=== PATIENT | female | born 1985 | race Caucasian/White ===

== ENCOUNTER 2023-01-29 17:47 | Emergency (ER) | payer OTHER, SELFPAY ==
[2023-01-29 18:15] VITALS: BP 138/80; PULSE 80; RESP 14; TEMP 36.8; O2SAT 99; BMI 25.8
[2023-01-29 21:52] VITALS: BP 117/79; PULSE 74; O2SAT 98
--- NOTE | 2023-01-29 22:00 | ED_ITS ---
HPI - Neuro Symptoms/Deficit General Chief Complaint: Neuro Symptoms/Deficit Stated Complaint: Blurred vision, speech is off, worsening Time Seen by Provider: 01/29/23 21:54 Source: patient Mode of arrival: Ambulatory Limitations: no limitations History of Present Illness HPI Narrative: Patient is a 38-year-old female who was told to come to the emergency department after attempting to make a initial visit with a primary doctor. She was trying to make an appointment with the primary doctor for evaluation of symptoms that have been going on for the past several months. She states that she is having occasional episodes of blurry vision and saying inappropriate words. She is also having periods of lightheadedness. No chest pain. These periods are intermittent. No numbness and tingling in her upper and lower extremities. She feels that the symptoms have been getting worse so she attempted to make contact with the primary doctor and was told that she needed comes in the emergency department. On Anticoagulants: No Related Data Allergies Allergy/AdvReac Type Severity Reaction Status Date / Time codeine Allergy Verified 01/29/23 18:15 Review of Systems Review of Systems ROS Unobtainable: All systems reviewed & are unremarkable except as noted in HPI and below Hematologic/Lymphatic On Anticoagulants: No Patient History Social History Smoking Status: Unknown if ever smoked Smoking Status: Unknown if ever smoked alcohol intake frequency: holidays/special occasions only Substance Use Type: does not use Exam Initial Vital Signs Initial Vital Signs: Vital Signs Temperature 98.2 F 01/29/23 18:15 Pulse Rate 80 01/29/23 18:15 Respiratory Rate 14 01/29/23 18:15 Blood Pressure 138/80 01/29/23 18:15 Pulse Oximetry 99 01/29/23 18:15 Oxygen Delivery Method Room Air 01/29/23 18:15 Const General: cooperative, comfortable and No ill appearing HENMT Head: normal to inspection and normocephalic Resp Effort & Inspection: normal respiratory effort Auscultation: clear to auscultation bilaterally Cardio Rate: regular rate Rhythm: regular rhythm Skin General: no rashes or lesions noted Neuro General: patient alert, patient awake, patient oriented x3 and moves all extre mities Speech: speech normal Extrem General: normal to inspection and capillary refill normal Psych Appearance: grossly normal Scores GCS [place] coma scale eye opening: Spontaneous Gabriel coma scale verbal response: Orientated Gabriel coma scale motor response: Obey commands [place] coma scale total score: 15 Course Orders Ordered: ED Orders 01/29/23 22:02 CT head/brain wo con Stat 01/29/23 22:40 Complete Blood Count AUTO DIFF Stat Comprehensive Metabolic Panel Stat Ethanol (ETOH) Stat Lipase Stat Magnesium Stat Phosphorous Stat Thyroid Stimulating Hormone Stat Vital Signs Vital signs: Vital Signs - 8 hr 01/29/23 21:52 01/30/23 00:06 Pulse Rate 74 68 Respiratory Rate 19 Blood Pressure 117/79 112/59 L Pulse Oximetry 98 98 Oxygen Delivery Method Room Air Room Air MDM - Neuro Symptoms/Deficit Lab Data Attestation: I reviewed the patient's lab results. 01/29/23 22:40 01/29/23 22:40 Labs: Lab Results 01/29/23 01/29/23 01/29/23 Range/Units 22:40 22:40 22:40 WBC 7.1 (4.5-11.0) X10^3/uL RBC 4.32 (4.0-5.2) X10^6/uL Hgb 13.4 (12.0-16.0) g/dL Hct 39.7 (36-46) % MCV 91.9 (80-100) fL MCH 31.1 (26-34) PG MCHC 33.8 (30-36) % RDW 13.2 (11.6-14.8) % Plt Count 177 (150-400) X10^3/uL Neut % (Auto) 42.8 L (50-75) % Lymph % (Auto) 47.1 H (25-40) % [place] % (Auto) 8.4 (3-14) % Eos % (Auto) 1.4 L (2-4) % Baso % (Auto) 0.3 (0-2) % Neut # (Auto) 3000 (7677-1079) /uL Lymph # (Auto) 3300 (6878-9334) /uL [place] # (Auto) 600 (0-900) /uL Eos # (Auto) 100 (0-450) /uL Baso # (Auto) 0 (0-100) /uL Sodium 137 (137-145) mmol/L Potassium 3.4 (3.4-5.1) mmol/L Chloride 102 (98-107) mmol/L Carbon Dioxide 28 (22-32) mmol/L BUN 11 (7-17) mg/dL Creatinine 0.76 (0.52-1.04) mg/dL Estimated GFR > 60 (>60) mL/min BUN/Creatinine Ratio 14.5 (6-22) Glucose 96 (70-100) mg/dL Calcium 8.6 (8.4-10.2) mg/dL Phosphorus 3.5 (2.5-4.5) mg/dL Magnesium 2.0 (1.6-2.3) mg/dL Total Bilirubin 0.5 (0.2-1.3) mg/dL AST 20 (14-36) IU/L ALT 13 (<35) IU/L Alkaline Phosphatase 55 (38-126) U/L Total Protein 7.2 (6.3-8.2) g/dL Albumin 4.2 (3.5-5.0) g/dL Globulin 3.0 (1.7-4.1) g/dL Albumin/Globulin Ratio 1.4 (1.0-2.8) Lipase 96 (23-300) U/L TSH (0.47-4.68) uIU/mL Ethyl Alcohol < 10 ( - 10) mg/dL 01/29/23 Range/Units 22:40 WBC (4.5-11.0) X10^3/uL RBC (4.0-5.2) X10^6/uL Hgb (12.0-16.0) g/dL Hct (36-46) % MCV (80-100) fL MCH (26-34) PG MCHC (30-36) % RDW (11.6-14.8) % Plt Count (150-400) X10^3/uL Neut % (Auto) (50-75) % Lymph % (Auto) (25-40) % [place] % (Auto) (3-14) % Eos % (Auto) (2-4) % Baso % (Auto) (0-2) % Neut # (Auto) (1261-5681) /uL Lymph # (Auto) (6745-3571) /uL [place] # (Auto) (0-900) /uL Eos # (Auto) (0-450) /uL Baso # (Auto) (0-100) /uL Sodium (137-145) mmol/L Potassium (3.4-5.1) mmol/L Chloride (98-107) mmol/L Carbon Dioxide (22-32) mmol/L BUN (7-17) mg/dL Creatinine (0.52-1.04) mg/dL Estimated GFR (>60) mL/min BUN/Creatinine Ratio (6-22) Glucose (70-100) mg/dL Calcium (8.4-10.2) mg/dL Phosphorus (2.5-4.5) mg/dL Magnesium (1.6-2.3) mg/dL Total Bilirubin (0.2-1.3) mg/dL AST (14-36) IU/L ALT (<35) IU/L Alkaline Phosphatase (38-126) U/L Total Protein (6.3-8.2) g/dL Albumin (3.5-5.0) g/dL Globulin (1.7-4.1) g/dL Albumin/Globulin Ratio (1.0-2.8) Lipase (23-300) U/L TSH 2.98 (0.47-4.68) uIU/mL Ethyl Alcohol ( - 10) mg/dL Imaging Data CT scan - head: Radiologist's Impression: PROCEDURE:? CT HEAD/BRAIN WO CON ? INDICATIONS:? Speech issues ? TECHNIQUE:? Noncontrast 4.5 mm thick angled axial sections acquired from the foramen magnum to the vertex, with coronal and sagittal reformats.? For radiation dose reduction, the following was used:? automated exposure control, adjustment of mA and/or kV according to patient size.? ? COMPARISON:? None. ? FINDINGS:? Image quality:? Excellent.? ? CSF spaces:? Basal cisterns are patent.? No extra-axial fluid collections.? Ventricles are normal in size and shape.? ? Brain:? No intracranial hemorrhage, mass, or mass effect.? Bhatia-white matter interface appears preserved.? ? Skull and face:? Calvarium and visualized facial bones are intact, without suspicious lesions.? ? Sinuses:? Visualized sinuses and mastoids are clear.? ? IMPRESSION:? ? 1. No acute intracranial abnormality. MDM Narrative Medical decision making narrative: Patient has had neurologic symptoms that have been going on for the past several months. Here in the emergency department her labs are unremarkable. Her exam i s unremarkable although she does admit she is not having symptoms currently. Her head CT is unremarkable. Patient understands lack of definitive diagnosis however does not appear to be an emergent, infectious, surgical issue. Low suspicion for CVA/TIA. No easily reversible cause found here in the ER. Will discharge patient home and have her continue to work on making follow-up with primary provider. She was given return precautions. She expressed understanding and agreement. Discharge Plan Departure Patient Disposition: Home Clinical Impression: Speech abnormality Activity Restrictions/Additional Instructions: I do recommend that you continue to work on establishing care with a primary doctor. Continue any medications as directed. Return to the emergency department for any new or worsening symptoms. Stand Alone Forms: Patient Portal/API
--- NOTE | 2023-01-29 22:02 | DI.CT.S_ITS ---
PROCEDURE: CT HEAD/BRAIN WO CON INDICATIONS: Speech issues TECHNIQUE: Noncontrast 4.5 mm thick angled axial sections acquired from the foramen magnum to the vertex, with coronal and sagittal reformats. For radiation dose reduction, the following was used: automated exposure control, adjustment of mA and/or kV according to patient size. COMPARISON: None. FINDINGS: Image quality: Excellent. CSF spaces: Basal cisterns are patent. No extra-axial fluid collections. Ventricles are normal in size and shape. Brain: No intracranial hemorrhage, mass, or mass effect. Bhatia-white matter interface appears preserved. Skull and face: Calvarium and visualized facial bones are intact, without suspicious lesions. Sinuses: Visualized sinuses and mastoids are clear. IMPRESSION: 1. No acute intracranial abnormality. Dictated by: Alejandro Erickson M.D. on 01/29/2023 at 22:27 Approved by: Alejandro Erickson M.D. on 01/29/2023 at 22:28
[2023-01-29 23:00] LABS: Add Manual Diff / Slide Review NO; Basophils Absolute Auto 0 /uL (0-100); Basophils Percent Auto 0.3 % (0-2); Eosinophils Absolute Auto 100 /uL (0-450); Eosinophils Percent Auto 1.4 % (2-4); Hematocrit 39.7 % (36-46); Hemoglobin 13.4 g/dL (12.0-16.0); Lymphocytes Absolute Auto 3300 /uL (1100-4500); Lymphocytes Percent Auto 47.1 % (25-40); Mean Corpuscular HGB Conc 33.8 % (30-36); Mean Corpuscular Hemoglobin 31.1 PG (26-34); Mean Corpuscular Volume 91.9 fL (80-100); Monocytes Absolute Auto 600 /uL (0-900); Monocytes Percent Auto 8.4 % (3-14); Neutrophils Absolute Auto 3000 /uL (1500-7000); Neutrophils Percent Auto 42.8 % (50-75); Platelet Count 177 X10^3/uL (150-400); Red Blood Cell Count 4.32 X10^6/uL (4.0-5.2); Red Cell Distribution Width 13.2 % (11.6-14.8); White Blood Cell Count 7.1 X10^3/uL (4.5-11.0)
[2023-01-29 23:12] LABS: Ethanol (ETOH) < 10 mg/dL; Lipase 96 U/L (23-300); Phosphorous 3.5 mg/dL (2.5-4.5)
[2023-01-29 23:13] LABS: Alanine Aminotransferase 13 IU/L (<35); Albumin 4.2 g/dL (3.5-5.0); Albumin Globulin Ratio 1.4 (1.0-2.8); Alkaline Phosphatase 55 U/L (38-126); Aspartate Aminotransferase 20 IU/L (14-36); BUN Creatinine Ratio 14.5 (6-22); Bilirubin Total 0.5 mg/dL (0.2-1.3); Blood Urea Nitrogen 11 mg/dL (7-17); Calcium 8.6 mg/dL (8.4-10.2); Carbon Dioxide 28 mmol/L (22-32); Chloride 102 mmol/L (98-107); Estimated Glomerular Filt Rate > 60 mL/min (>60); Glucose 96 mg/dL (70-100); HEMOLYSIS < 15 (0-50); Potassium 3.4 mmol/L (3.4-5.1); Sodium 137 mmol/L (137-145); Total Protein 7.2 g/dL (6.3-8.2)
[2023-01-29 23:43] LABS: Thyroid Stimulating Hormone 2.98 uIU/mL (0.47-4.68)
[2023-01-30 00:06] VITALS: BP 112/59; PULSE 68; RESP 19; O2SAT 98
== END 2023-01-30 00:08 | disposition home or self-care (01) ==
PROVIDERS: Emergency Provider Emergency Medicine
DX: R47.9 Unspecified speech disturbances (principal); H53.8 Other visual disturbances
CPT/HCPCS: 36415; 70450; 80053; 80320; 83690; 83735; 84100; 84443; 85025; 99284

== ENCOUNTER → 2023-12-21 09:00 | Outpatient (CLI) | payer OTHER, SELFPAY ==
[2023-12-21 09:31] LABS: Add Manual Diff / Slide Review NO; Basophils Absolute Auto 100 /uL (0-100); Basophils Percent Auto 1.2 % (0-2); Eosinophils Absolute Auto 100 /uL (0-450); Eosinophils Percent Auto 1.8 % (2-4); Hematocrit 40.2 % (36-46); Hemoglobin 13.8 g/dL (12.0-16.0); Lymphocytes Absolute Auto 2200 /uL (1100-4500); Mean Corpuscular HGB Conc 34.3 % (30-36); Mean Corpuscular Hemoglobin 31.8 PG (26-34); Mean Corpuscular Volume 92.6 fL (80-100); Monocytes Absolute Auto 500 /uL (0-900); Monocytes Percent Auto 8.6 % (3-14); Neutrophils Absolute Auto 3000 /uL (1500-7000); Neutrophils Percent Auto 51.4 % (50-75); Platelet Count 173 X10^3/uL (150-400); Red Blood Cell Count 4.34 X10^6/uL (4.0-5.2); Red Cell Distribution Width 12.9 % (11.6-14.8); White Blood Cell Count 5.9 X10^3/uL (4.5-11.0)
[2023-12-21 10:02] LABS: Alanine Aminotransferase 12 IU/L (<35); Albumin 4.3 g/dL (3.5-5.0); Albumin Globulin Ratio 1.4 (1.0-2.8); Alkaline Phosphatase 47 U/L (38-126); Aspartate Aminotransferase 19 IU/L (14-36); BUN Creatinine Ratio 16.7 (6-22); Bilirubin Total 0.7 mg/dL (0.2-1.3); Blood Urea Nitrogen 12 mg/dL (7-17); Calcium 9.2 mg/dL (8.4-10.2); Carbon Dioxide 23 mmol/L (22-32); Chloride 107 mmol/L (98-107); Cholesterol 159 mg/dL (140-199); Estimated Glomerular Filt Rate > 60 mL/min (>60); Globulin 3.1 g/dL (1.7-4.1); Glucose 98 mg/dL (70-100); HDL Cholesterol 62 mg/dL (40-60); HEMOLYSIS < 15 (0-50); LDL Cholesterol Calculated 82 mg/dL (<100); Potassium 4.6 mmol/L (3.4-5.1); Sodium 138 mmol/L (137-145); Total Protein 7.4 g/dL (6.3-8.2); Triglycerides 75 mg/dL (35-150)
[2023-12-21 10:15] LABS: Follicle Stimulating Hormone 4.08 mIU/mL; Luteinizing Hormone 4.81 mIU/mL
[2023-12-21 10:17] LABS: Prolactin 25.2 ng/mL (3.0-18.6)
[2023-12-21 10:31] LABS: Estradiol, Total 101.2 pg/mL
[2023-12-21 10:38] LABS: HEMOLYSIS < 15 (0-50); Iron 130 ug/dL (37-170); Vitamin D 25 Hydroxy (D3) 22.9 ng/mL (30.0-100.0)
[2023-12-21 10:49] LABS: Percent Iron Saturation 46 % (15-50); Total Iron Binding Capacity 282 ug/dL (265-497); Transferrin 230 mg/dL (206-381); Vitamin B12 256 pg/mL (239-931)
[2023-12-21 11:10] LABS: TSH w/ Reflex to FT4 1.03 uIU/mL (0.47-4.68)
== END ==
LOC: LAB 09:01
PROVIDERS: PCP Family Medicine; Referring Provider Family Medicine; Visit Provider Family Medicine
DX: E04.9 Nontoxic goiter, unspecified (principal); L65.9 Nonscarring hair loss, unspecified; R41.3 Other amnesia; G43.109 Migraine with aura, not intractable, without status migrainosus; Z83.49 Family history of other endocrine, nutritional and metabolic diseases; K90.41 Non-celiac gluten sensitivity; Z13.6 Encounter for screening for cardiovascular disorders
CPT/HCPCS: 36415; 80053; 80061; 82306; 82607; 82670; 83001; 83002; 83540; 83550; 84146; 84443; 85025

== ENCOUNTER → 2024-01-10 09:17 | Outpatient (CLI) | payer OTHER, SELFPAY ==
--- NOTE | 2024-01-10 09:17 | DI.US.S_ITS ---
PROCEDURE: US THYROID INDICATIONS: Thyroid goiter TECHNIQUE: Real-time scanning was performed of the thyroid gland, with image documentation. COMPARISON: None. FINDINGS: Right: Thyroid lobe measures 5.8 x 1.8 x 1.6 cm, and is homogeneous in echotexture. Left: Thyroid lobe measures 5.2 x 1.5 x 1.0 cm, and is homogenous in echotexture. Isthmus: 0.2 cm thick. Nodule number: 1 Location: Right mid Size: 2.6 x 1.2 x 1.2 cm. Composition: Mixed cystic/solid Echogenicity: Anechoic Shape: wider than tall. Margins: Irregular Echogenic foci: None Total points: 3 ACR TI-RADS category: 3 IMPRESSION: 1. 2.6 cm T3 lesion. FNA recommended if not previously performed. ACR TI-RADS definitions and recommendations: TI-RADS 1 (benign): 0 points. FNA not needed. TI-RADS 2 (not suspicious): 2 points. FNA not needed. TI-RADS 3 (mildly suspicious): 3 points. * FNA if 2.5 cm or larger, follow up if 1.5 cm or larger (at 1, 3, and 5 years). TI-RADS 4 (moderately suspicious): 4-6 points. * FNA if 1.5 cm or larger, follow up if 1 cm or larger (at 1, 2, 3, and 5 years). TI-RADS 5 (highly suspicious): 7 points or more. * FNA if 1 cm or larger, follow up if 0.5 cm or larger (every year for 5 years). Dictated by: Chica Negro M.D. on 01/11/2024 at 11:57 Approved by: Chica Negro M.D. on 01/11/2024 at 11:59
== END ==
LOC: US 09:17
PROVIDERS: PCP Family Medicine; Referring Provider Family Medicine; Visit Provider Family Medicine
DX: E04.1 Nontoxic single thyroid nodule (principal)
CPT/HCPCS: 76536

== ENCOUNTER → 2024-01-14 17:07 | Outpatient (CLI) | payer OTHER, SELFPAY ==
--- NOTE | 2024-01-14 17:09 | DI.MRI.S_ITS ---
PROCEDURE: MR BRAIN (PITUITARY) [facility] INDICATIONS: elevated proctin TECHNIQUE: Noncontrast sagittal and axial FLAIR, axial gradient echo, axial diffusion and ADC through the brain. Thin-slice sagittal and coronal T1 spin echo, coronal T2 fast spin echo through the pituitary. After the administration contrast, optional dynamic coronal T1 spin echo, thin-slice coronal and sagittal T1 spin echo images through the pituitary fossa; axial and coronal and sagittal T1 spin echo with fat saturation through the brain. COMPARISON: CT, CT HEAD/BRAIN WO CON, 01/29/2023, 22:04. FINDINGS: Image quality: Excellent. Pituitary Gland: There is mild leftward deviation of the infundibulum. The pituitary gland is not enlarged. There is an overall appearance of mild heterogeneous enhancement. CSF Spaces: Ventricles are normal in size and shape. Basal cisterns are patent. No extra-axial fluid collections. Brain: No intracranial bleeds or mass effects. No abnormal intracranial enhancement. Bhatia-white matter interface is intact. Diffusion weighted images demonstrate no acute ischemic insults. Brainstem is normal. Normal intravascular flow voids are present. Skull and face: Calvarial marrow is normal in signal. Orbits appear normal. Sinuses: Sinuses and mastoids are clear. IMPRESSION: Mild overall appearance of heterogeneous enhancement within the pituitary gland without enlargement or distinctly defined mass. Dictated by: Rosa Falcon M.D. on 01/15/2024 at 11:42 Approved by: Rosa Falcon M.D. on 01/15/2024 at 12:11
== END ==
PROVIDERS: PCP Family Medicine; Referring Provider Family Medicine; Visit Provider Family Medicine
DX: R79.89 Other specified abnormal findings of blood chemistry (principal)
CPT/HCPCS: 70553; A9579

== ENCOUNTER → 2024-02-29 11:22 | Outpatient (CLI) | payer OTHER, SELFPAY ==
--- NOTE | 2024-02-29 11:26 | DI.RAD.S_ITS ---
PROCEDURE: XR SACRUM COCCYX MIN 2V INDICATIONS: coccygeal pain TECHNIQUE: 3 views of the sacrum and coccyx acquired. COMPARISON: None. FINDINGS: Bones: No fractures or dislocations. No suspicious bony lesions. Soft tissues: Visualized bowel gas pattern is normal. No suspicious soft tissue densities. IMPRESSION: No fracture or dislocation. Dictated by: Theresa Castle M.D. on 02/29/2024 at 16:13 Approved by: Theresa Castle M.D. on 02/29/2024 at 16:14
== END ==
PROVIDERS: PCP Family Medicine; Referring Provider Family Medicine; Visit Provider Family Medicine
DX: M53.3 Sacrococcygeal disorders, not elsewhere classified (principal); G89.29 Other chronic pain
CPT/HCPCS: 72220

== ENCOUNTER → 2024-03-30 16:57 | Outpatient (CLI) | payer OTHER, SELFPAY ==
[2024-03-30 18:29] LABS: Prolactin 13.1 ng/mL (3.0-18.6)
== END ==
PROVIDERS: PCP Family Medicine; Referring Provider Family Medicine; Visit Provider Family Medicine
DX: R79.89 Other specified abnormal findings of blood chemistry (principal)
CPT/HCPCS: 36415; 84146

== ENCOUNTER → 2024-06-12 14:36 | Outpatient (CLI) | payer OTHER, SELFPAY ==
--- NOTE | 2024-06-12 14:37 | DI.MG.S_ITS ---
BILATERAL DIGITAL SCREENING MAMMOGRAM 3D/2D WITH CAD: 06/12/2024 CLINICAL: Routine screening. Baseline exam. No prior exams were available for comparison. Both breasts are heterogeneously dense, which may obscure small masses (category c / 51-75% glandular tissue). Current study was also evaluated with a Computer Aided Detection (CAD) system. There is an oval focal asymmetry with an obscured margin in the right breast at 12 o'clock posterior depth. There is an oval equal density focal asymmetry with an obscured margin in the left breast central to the nipple middle depth. There also is an oval asymmetry with an obscured margin in the left breast at 2 o'clock middle depth. No other significant masses or calcifications are seen in either breast. IMPRESSION: INCOMPLETE: NEEDS ADDITIONAL IMAGING EVALUATION The oval focal asymmetry in the right breast at 12 o'clock posterior depth resembles a cyst, a solid mass, or a fibroadenoma and is indeterminate. Additional views with possible ultrasound are recommended. The oval equal density focal asymmetry in the left breast central to the nipple middle depth resembles a cyst, a lymph node, or a fibroadenoma and is indeterminate. Additional views with possible ultrasound are recommended. The oval asymmetry in the left breast at 2 o'clock middle depth resembles a cyst, a lymph node, or a fibroadenoma and is indeterminate. Additional views with possible ultrasound are recommended. Based on the Tyrer Cuzick model (a risk assessment model) the patient's lifetime risk is 13.9% and her 10 year risk is 1.7%. According to the ACR, ACS, and NCCN guidelines, an annual breast MRI exam along with mammogram is recommended if the patient's lifetime risk is 20% or greater. This exam was interpreted at Station ID: [id number]. NOTE: For mammograms, a report in lay terms will be sent to the patient. Approximately 15% of breast malignancies will not be visualized mammographically. In the management of a palpable breast mass, a negative mammogram must not discourage biopsy of a clinically suspicious lesion. Electronically Signed By: Castillo Baker M.D. aty/:06/12/2024 18:12:11 letter sent: Followup Recommended ACR BI-RADS Category 0: Incomplete 3340F
== END ==
PROVIDERS: PCP Family Medicine; Referring Provider Family Medicine; Visit Provider Family Medicine
DX: Z12.31 Encounter for screening mammogram for malignant neoplasm of breast (principal); R92.333 Mammographic heterogeneous density, bilateral breasts
CPT/HCPCS: 77063; 77067

== ENCOUNTER → 2024-06-26 12:18 | Outpatient (CLI) | payer OTHER, SELFPAY ==
--- NOTE | 2024-06-26 12:19 | DI.US.S_ITS ---
PROCEDURE: US PELVIC COMPLETE INDICATIONS: LEFT PELVIC PAIN TECHNIQUE: Real-time scanning was performed of the pelvic organs, with image documentation. Additional endovaginal scanning was necessary due to incomplete visualization of the adnexal and endometrial structures by transabdominal scanning. COMPARISON: None. FINDINGS: Uterus: Uterus is anteverted and normal in size at 8.7 x 5.1 x 7.4 cm. The myometrium is heterogeneous. The endometrium measures 7.5 mm combined thickness. Right anterior intramural fibroid measuring 1.7 x 1 x 1.2 cm. Cervix and vagina are within normal limits. Ovaries: The right ovary measures 1.7 x 1.4 x 2.5 cm, with a calculated ovarian volume of 3.1 cc. The left ovary measures 1.7 x 1.6 x 3.3 cm, with a calculated ovarian volume of 4.6 cc. The ovaries have a normal sonographic appearance. Less than 12 follicles can be seen in each ovary. No adnexal masses are seen. Normal color flow of the bilateral ovaries. Other: No pathologic free abdominal or pelvic fluid. IMPRESSION: 1. Intramural fibroid measuring 1.7 x 1 x 1.2 cm. 2. Normal sonographic appearance of the bilateral ovaries. We strive to produce accurate, complete, and clear reports of imaging services. To assist us in improving patient care, this report was composed using standard report templates and voice recognition software. Therefore, it may contain abnormal punctuation, insertions and/or omissions. Occasional wrong-word or sound-alike substitutions may occur. Though we review the report and make efforts to correct it, we do recommend that the report be read carefully in proper context to recognize any text inaccuracies. Dictated by: Theresa Castle M.D. on 06/26/2024 at 19:29 Approved by: Theresa Castle M.D. on 06/26/2024 at 19:31
== END ==
PROVIDERS: PCP Family Medicine; Referring Provider Family Medicine; Visit Provider Family Medicine
DX: S76.019A Strain of muscle, fascia and tendon of unspecified hip, initial encounter (principal); D25.1 Intramural leiomyoma of uterus
CPT/HCPCS: 76830; 76856; 93975

== ENCOUNTER → 2024-06-29 13:26 | Outpatient (CLI) | payer OTHER, SELFPAY ==
--- NOTE | 2024-06-29 13:27 | DI.US.S_ITS ---
LIMITED ULTRASOUND OF RIGHT BREAST: 06/29/2024 CLINICAL: Patient returns today to evaluate a focal asymmetry in the right breast. Comparison is made to exams dated: 06/29/2024 mammogram and 06/12/2024 mammogram - [facility]. Color flow ultrasound of the right breast 1-2 o'clock region was performed. Bhatia scale images of the real-time examination were reviewed. There is a benign 1.1 cm x 0.8 cm x 0.8 cm oval cyst with a smooth internal wall in the right breast at 1 o'clock posterior depth 4 cm from the nipple. This oval cyst is anechoic with posterior acoustic enhancement. This correlates with mammography findings. Color flow imaging demonstrates that there is no vascularity present. IMPRESSION: BENIGN There is no sonographic evidence of malignancy. The 1.1 cm x 0.8 cm x 0.8 cm oval cyst in the right breast is consistent with a simple cyst and is benign. Return to annual mammogram screening schedule is recommended. This exam was interpreted at Station ID: [id number]. Electronically Signed By: Jean montes/ingrid:06/29/2024 21:47:11 Ultrasound BI-RADS: 2 Benign
--- NOTE | 2024-06-29 13:27 | DI.US.S_ITS ---
LIMITED ULTRASOUND OF LEFT BREAST: 06/29/2024 CLINICAL: Patient returns today to evaluate a focal asymmetry in the left breast. Comparison is made to exams dated: 06/29/2024 mammogram and 06/12/2024 mammogram - [facility]. Real-time and continuous wave Doppler ultrasound of the left breast 1-2 o'clock region were performed. There is a benign 1 cm x 1.1 cm x 0.4 cm oval cyst with a smooth internal wall in the left breast at 1 o'clock posterior depth. This oval cyst is anechoic with posterior acoustic enhancement. This correlates with mammography findings. Color flow imaging demonstrates that there is no vascularity present. There also is a benign 1.3 cm x 1.4 cm cluster of oval cysts with a septated internal wall in the left breast at 2 o'clock posterior depth 4 cm from the nipple. This cluster of oval cysts is anechoic with posterior acoustic enhancement. This correlates with mammography findings. Color flow imaging demonstrates that there is no vascularity present. IMPRESSION: BENIGN There is no sonographic evidence of malignancy. The 1 cm x 1.1 cm x 0.4 cm oval cyst in the left breast at 1 o'clock posterior depth is consistent with a simple cyst and is benign. The 1.3 cm x 1.4 cm cluster of oval cysts in the left breast at 2 o'clock posterior depth is benign. Return to annual mammogram screening schedule is recommended. This exam was interpreted at Station ID: [id number]. Electronically Signed By: Jean montes/ingrid:06/29/2024 21:45:40 letter sent: Normal Exam Ultrasound BI-RADS: 2 Benign
--- NOTE | 2024-06-29 13:27 | DI.MG.S_ITS ---
BILATERAL DIGITAL DIAGNOSTIC MAMMOGRAM 3D/2D WITH ADDITIONAL VIEWS: 06/29/2024 CLINICAL: Additional evaluation requested from prior study. Comparison is made to exam dated: 06/12/2024 mammogram - [facility]. Both breasts are heterogeneously dense, which may obscure small masses (category c / 51-75% glandular tissue). There is an oval focal asymmetry with an obscured and circumscribed margin in the right breast at 1 o'clock posterior depth. This is seen in additional views. There is an oval equal density focal asymmetry with an obscured and circumscribed margin in the left breast at 1 o'clock posterior depth. There also is an oval asymmetry with an obscured margin in the left breast at 2 o'clock middle depth. This is seen in additional views. No other significant masses or calcifications are seen in either breast. IMPRESSION: INCOMPLETE: NEEDS ADDITIONAL IMAGING EVALUATION The oval focal asymmetry in the right breast at 1 o'clock posterior depth is indeterminate. An ultrasound is recommended. The oval equal density focal asymmetry in the left breast at 1 o'clock posterior depth is indeterminate. An ultrasound is recommended. The oval asymmetry in the left breast at 2 o'clock middle depth is indeterminate. An ultrasound is recommended. Based on the Tyrer Cuzick model (a risk assessment model) the patient's lifetime risk is 14.2% and her 10 year risk is 1.8%. According to the ACR, ACS, and NCCN guidelines, an annual breast MRI exam along with mammogram is recommended if the patient's lifetime risk is 20% or greater. This exam was interpreted at Station ID: [id number]. NOTE: For mammograms, a report in lay terms will be sent to the patient. Approximately 15% of breast malignancies will not be visualized mammographically. In the management of a palpable breast mass, a negative mammogram must not discourage biopsy of a clinically suspicious lesion. Electronically Signed By: Jean montes/ingrid:06/29/2024 21:43:30 ACR BI-RADS Category 0: Incomplete 3340F
== END ==
LOC: MAMMO 13:27
PROVIDERS: PCP Family Medicine; Referring Provider Family Medicine; Visit Provider Family Medicine
DX: R92.8 Other abnormal and inconclusive findings on diagnostic imaging of breast (principal); R92.333 Mammographic heterogeneous density, bilateral breasts; N60.02 Solitary cyst of left breast; N60.01 Solitary cyst of right breast
CPT/HCPCS: 76642; 77066; G0279

== ENCOUNTER → 2024-09-22 14:30 | Outpatient (CLI) | payer OTHER, SELFPAY ==
[2024-09-22 15:35] LABS: HEMOLYSIS < 15 (0-50); Iron 94 ug/dL (37-170)
[2024-09-22 15:46] LABS: Percent Iron Saturation 34 % (15-50); Total Iron Binding Capacity 278 ug/dL (265-497); Transferrin 222 mg/dL (206-381)
[2024-09-22 15:52] LABS: Prolactin 7.5 ng/mL (3.0-18.6)
[2024-09-22 16:06] LABS: TSH w/ Reflex to FT4 0.78 uIU/mL (0.47-4.68)
[2024-09-22 16:09] LABS: Ferritin 33 ng/mL (6-137)
[2024-09-22 16:26] LABS: Vitamin B12 935 pg/mL (239-931)
[2024-09-22 16:54] LABS: Vitamin D 25 Hydroxy (D3) 70.8 ng/mL (30.0-100.0)
[2024-09-22 16:55] LABS: Follicle Stimulating Hormone 3.27 mIU/mL; Luteinizing Hormone 4.29 mIU/mL; Progesterone, Total 0.98 ng/mL
[2024-09-27 20:15] LABS: Estrogen 352 pg/mL (.)
[2024-10-05 23:36] LABS: Anti Mullerian Hormone 0.676 ng/mL (.)
== END ==
PROVIDERS: PCP Family Medicine; Referring Provider Family Medicine; Visit Provider Family Medicine
DX: R10.2 Pelvic and perineal pain (principal); E23.7 Disorder of pituitary gland, unspecified; R79.89 Other specified abnormal findings of blood chemistry; R41.3 Other amnesia; L65.9 Nonscarring hair loss, unspecified; E04.9 Nontoxic goiter, unspecified; E61.1 Iron deficiency; E53.8 Deficiency of other specified B group vitamins; E55.9 Vitamin D deficiency, unspecified; R68.82 Decreased libido
CPT/HCPCS: 36415; 82306; 82397; 82607; 82672; 82728; 83001; 83002; 83540; 83550; 84144; 84146; 84443

== ENCOUNTER → 2025-08-10 | Outpatient (CLI) | payer OTHER, SELFPAY ==
--- NOTE | 2025-08-10 14:54 | DI.MG.S_ITS ---
MM screening mammo BI: 08/10/2025. BI-RADS: 2 CLINICAL: 40-year old female for bilateral screening mammogram. Tyrer-Cuzick lifetime risk of 12.5%. No personal or first-degree family history of breast cancer. PRIOR EXAMS 06/29/2024, 06/12/2024. MAMMOGRAPHY TECHNIQUE: 2D and 3D (tomosynthesis) digital mammographic views obtained, with additional images as needed for full coverage. Current study was also evaluated with a Computer Aided Detection (CAD) system. DENSITY C. The breasts are heterogeneously dense, which may obscure small masses. MAMMOGRAPHY FINDINGS Bilateral: There are multiple bilateral benign appearing round and oval circumscribed masses. There are no suspicious masses, calcifications, or other findings in the breast. IMPRESSION: * No evidence of malignancy with benign findings. RECOMMENDATIONS Bilateral * Annual screening mammography. OVERALL ASSESSMENT CATEGORY BI-RADS-2: Benign. The [employer] recommends annual screening mammography beginning at age 40 for women with average risk of breast cancer. ELECTRONICALLY SIGNED: Kimberly Victoria M.D. on 08/23/2025 at 09:54:22 AM PT Interpreting Station ID: [id number]
== END ==
PROVIDERS: PCP Family Medicine; Referring Provider Family Medicine; Visit Provider Family Medicine
DX: Z12.31 Encounter for screening mammogram for malignant neoplasm of breast (principal); R92.333 Mammographic heterogeneous density, bilateral breasts
CPT/HCPCS: 77063; 77067

== ENCOUNTER → 2025-09-16 13:53 | Outpatient (CLI) | payer OTHER, SELFPAY ==
[2025-09-16 15:08] LABS: Add Manual Diff / Slide Review NO; Hematocrit 39.4 % (36-46); Hemoglobin 13.4 g/dL (12.0-16.0); Lymphocytes Absolute Auto 2600 /uL (1100-4500); Mean Corpuscular HGB Conc 34.0 % (30-36); Mean Corpuscular Hemoglobin 31.3 PG (26-34); Mean Corpuscular Volume 91.9 fL (80-100); Platelet Count 200 X10^3/uL (150-400)
[2025-09-16 15:29] LABS: Alanine Aminotransferase 11 IU/L (<35); Albumin 4.7 g/dL (3.5-5.0); Albumin Globulin Ratio 1.7 (1.0-2.8); Alkaline Phosphatase 54 U/L (38-126); Blood Urea Nitrogen 9 mg/dL (7-17); Calcium 9.6 mg/dL (8.4-10.2); Carbon Dioxide 26 mmol/L (22-32); Chloride 102 mmol/L (98-107); Estimated Glomerular Filt Rate > 60 mL/min (>60); Globulin 2.8 g/dL (1.7-4.1); Glucose 90 mg/dL (70-99); HEMOLYSIS < 15 (0-50); Potassium 3.9 mmol/L (3.4-5.1); Sodium 137 mmol/L (137-145); Total Protein 7.5 g/dL (6.3-8.2)
[2025-09-16 15:44] LABS: Vitamin D 25 Hydroxy (D3) 55.2 ng/mL (30.0-100.0)
[2025-09-16 16:01] LABS: Thyroid Stimulating Hormone 1.08 uIU/mL (0.47-4.68)
[2025-09-16 16:05] LABS: Ferritin 27 ng/mL (6-137)
[2025-09-16 16:19] LABS: Vitamin B12 751 pg/mL (239-931)
== END ==
PROVIDERS: PCP Family Medicine; Referring Provider Family Medicine; Visit Provider Family Medicine
DX: E53.8 Deficiency of other specified B group vitamins (principal); E55.9 Vitamin D deficiency, unspecified; E61.1 Iron deficiency; E04.9 Nontoxic goiter, unspecified; E23.7 Disorder of pituitary gland, unspecified
CPT/HCPCS: 36415; 80053; 82306; 82607; 82728; 84443; 85025

== ENCOUNTER → 2025-11-03 16:11 | Outpatient (CLI) | payer OTHER, SELFPAY ==
--- NOTE | 2025-11-03 16:12 | DI.US.S_ITS ---
PROCEDURE: US THYROID INDICATIONS: goiter TECHNIQUE: Real-time scanning was performed of the thyroid gland, with image documentation. COMPARISON: [facility], US, US THYROID, 01/10/2024, 9:29. FINDINGS: Thyroid: Right lobe measures 6.2 x 1.3 x 1.8 cm. Left lobe measures 5.7 x 1.0 x 1.4 cm. Isthmus is 0.2 cm thick. Echotexture is homogeneous. Nodule number: 1 Location: Right midpole Size: 1.9 x 1.1 x 1.3 cm previously 2.6 x 1.2 x 1.2 cm. Composition: Mixed cystic and solid Echogenicity: Isoechoic and anechoic Shape: wider than tall. Margins: Smooth Echogenic foci: A few with comet tail artifacts Total points: Four ACR TI-RADS category: Four IMPRESSION: Decreased size of a single mixed cystic and solid right thyroid nodule. Continued surveillance recommended. ACR TI-RADS definitions and recommendations: TI-RADS 1 (benign): 0 points. FNA not needed. TI-RADS 2 (not suspicious): 2 points. FNA not needed. TI-RADS 3: 3 points. * FNA if 2.5 cm or larger, follow up if 1.5 cm or larger (at 1, 3, and 5 years). TI-RADS 4: 4-6 points. * FNA if 1.5 cm or larger, follow up if 1 cm or larger (at 1, 2, 3, and 5 years). TI-RADS 5: 7 points or more. * FNA if 1 cm or larger, follow up if 0.5 cm or larger (every year for 5 years). Dictated by: Jacquelyn Larson M.D. on 11/04/2025 at 13:58 Approved by: Jacquelyn Larson M.D. on 11/04/2025 at 14:06
== END ==
LOC: US 16:11
PROVIDERS: PCP Family Medicine; Referring Provider Family Medicine; Visit Provider Family Medicine
DX: E04.1 Nontoxic single thyroid nodule (principal)
CPT/HCPCS: 76536